=== PATIENT | female | born 1940 | race Caucasian/White ===

== ENCOUNTER 2016-08-13 23:23 | Emergency (ER) | payer MEDICARE, OTHER ==
--- NOTE | 2016-08-14 05:56 | ER ---
ADMIT: 08/13/2016 RM/LOC: ER [facility] MR#: [id number] [id number] ROBERTA RUSH [address] [place] [address] Emergency Room Report SEX: F AGE: 76 : 1940 DATE: 08/13/2016 TIME: 2323 hours. Please refer to my T-sheet for complete H and P. HISTORY OF PRESENT ILLNESS: Briefly, the patient is a 76-year-old who comes in with chest pain. She actually had a procedure done with five teeth pulled today, started having chest pain about 4 o'clock while laying in bed. She became anxious. She kind of spasms, then gets better. Does not radiate. She never had heart problems. Does not smoke. She has some chronic pain issues. PHYSICAL EXAMINATION: VITAL SIGNS: Her blood pressure is 150/75, pulse 79, respirations 16, temp 97.6, sat 95%. GENERAL: She is slightly anxious. HEENT: Grossly normal except for postop teeth. LUNGS: Clear with a trace of wheezes. HEART: Regular. ABDOMEN: Soft. SKIN: No rash. EMERGENCY DEPARTMENT COURSE: Her CBC was normal except platelets 133. Chemistries normal except glucose 109, LDH 248. Cardiac enzymes negative. D- dimer is 1.09. EKG was sinus rhythm, rate 81, no changes. Chest x-ray revealed no acute disease. CT scan revealed no PE but some mild interstitial changes. She was given Ativan and Protonix here, normal saline. She was still much better. I had a long discussion with her. She was ready for discharge. ASSESSMENT: 1. Atypical chest pain. 2. Postop teeth. PLAN: Motrin. Return if worse. Follow up with Dr. Rojas in 1 or 2 days. Benny Llamas MD/ dennis JOB #: [id number] CC: Benny Llamas MD, Attending Physician Chad Rojas DO, Family Physician
== END 2016-08-14 01:30 | disposition home or self-care (01) ==
LOC: ER 23:23
DX: R07.89 Other chest pain (principal); I10 Essential (primary) hypertension; F32.9 Major depressive disorder, single episode, unspecified; Z90.710 Acquired absence of both cervix and uterus; Z98.890 Other specified postprocedural states